=== PATIENT | female | born 1930 | race Caucasian/White ===

== ENCOUNTER 2021-01-23 22:28 | Emergency (ER) | payer OTHER ==
[~2021-01-23] VITALS: Ht 182.9 cm; Wt 75.0 kg
[2021-01-23 22:36] VITALS: BP 118/74
[2021-01-23] MEDS ORDERED: LIDOCAINE 1%-EPI 1:100K, 20ML ONE (22:47)
[2021-01-23] MEDS ORDERED: OXYMETAZOLINE NASAL SPRAY 0.05%,30ML ONE (22:47)
--- NOTE | 2021-01-23 22:58 | NUR ---
ERP AT BEDSIDE WITH NASAL CART.
== END 2021-01-24 02:30 | disposition home or self-care (01) ==
LOC: ED 22:38
DX: R04.0 Epistaxis (principal)
CPT/HCPCS: 99283; 99284